=== PATIENT | male | born 1980 | race Caucasian/White ===

== ENCOUNTER 2016-06-03 06:35 | Emergency (ER) | payer SELFPAY ==
[2016-06-03 06:49] VITALS: O2SAT 98
[2016-06-03] MEDS ORDERED: Naproxen 550 mg Tab PO STA (07:34)
[2016-06-03] MEDS ORDERED: Naproxen 550 mg Tab PO ONE (07:45)
--- NOTE | 2016-06-03 08:00 | RAD ---
PROCEDURE: Radiographs of the Right Shoulder HISTORY: RIGHT NONTRAUMATIC SHOULDER PAIN COMPARISON: No prior. FINDINGS: BONES: Normal. No fracture. JOINTS: Normal. Glenohumeral and acromioclavicular joints preserved. No osteoarthritis. SOFT TISSUES: Normal. OTHER FINDINGS: None. IMPRESSION: Normal radiographs of the right shoulder.
--- NOTE | 2016-06-03 08:06 | C.PDOC ---
History Of Present Illness 36 y/o male presents to the ED complaining of right shoulder pain for 20 days, worse today. 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 He denies any trauma/injury, chest pain, shortness of breath, cough, fever, or rash. States he did not take any OTC medication for the pain. Time Seen by Provider: 06/03/16 07:16 Chief Complaint (Nursing): Upper Extremity Problem/Injury History Per: Patient History/Exam Limitations: no limitations Onset/Duration Of Symptoms: Days (20), Gradual, Persistent, Worse Since (today) Current Symptoms Are (Timing): Still Present Quality: Aching, "Pain", Other (throbbing) Exacerbating Factor(s): Movement Recent travel outside of the [place]: No Past Medical History Reviewed: Historical Data, Nursing Documentation, Vital Signs Vital Signs: Last Vital Signs Temp 98.1 F 06/03/16 06:45 Pulse 69 06/03/16 06:45 Resp 14 06/03/16 06:45 BP 107/74 06/03/16 06:45 Pulse Ox 98 06/03/16 08:22 - Medical History PMH: No Chronic Diseases Surgical History: No Surg Hx Family History: States: No Known Family Hx - Social History Hx Tobacco Use: Yes (heavy smoker) Hx Alcohol Use: No Hx Substance Use: No - Immunization History Hx Tetanus Toxoid Vaccination: No Hx Influenza Vaccination: No Hx Pneumococcal Vaccination: No Review Of Systems Except As Marked, All Systems Reviewed And Found Negative. Constitutional: Negative for: Fever Cardiovascular: Negative for: Chest Pain Respiratory: Negative for: Cough, Shortness of Breath Musculoskeletal: Positive for: Shoulder Pain (right) Skin: Negative for: Rash Physical Exam - Physical Exam Appears: Non-toxic, No Acute Distress, Other (comfortable) Skin: Normal Color, Warm, Dry, No Rash Head: Atraumatic, Normacephalic Neck: Normal ROM, Supple, No Other (tenderness) Chest: Symmetrical, No Tenderness Cardiovascular: Rhythm Regular Respiratory: Normal Breath Sounds, No Rales, No Rhonchi, No Wheezing Back: Normal Inspection, No Vertebral Tenderness, No Paraspinal Tenderness Extremity: Normal ROM, Tenderness (along right lower trapezius muscle and to posterior aspect of the right shoulder), No Deformity, No Swelling Pulses: Left Radial: Normal, Right Radial: Normal Neurological/Psych: Oriented x3, Normal Speech, Normal Cognition, Normal Sensation ED Course And Treatment O2 Sat by Pulse Oximetry: 98 (ra) Pulse Ox Interpretation: Normal - Other Rad X-Ray, Right Shoulder X-Ray: Viewed By Me, Read By Radiologist Interpretation: Accession No. : [id number]. Patient Name / ID : MAURICIO CHURCH A / [id number]. Exam Date : 06/03/2016 07:28:22 ( Approved ). Study Comment : Sex / Age : M / [id number]. Creator : Antonietta Sandoval V. Dictator : Antonietta Sandoval V. Grain Buyer : Factorer : Antonietta Sandoval V. Approver2 : Report Date : 2016 07:58:29. My Comment : . PROCEDURE: Radiographs of the Right Shoulder. HISTORY: RIGHT NONTRAUMATIC SHOULDER PAIN. COMPARISON: No prior. FINDINGS: BONES: Normal. No fracture. JOINTS: Normal. Glenohumeral and acromioclavicular joints preserved. No osteoarthritis. SOFT TISSUES: Normal. OTHER FINDINGS: None. IMPRESSION: Normal radiographs of the right shoulder. Progress Note: Right shoulder x-ray was ordered. Patient was treated with Naproxen PO and Flexeril PO. Reassessment Condition: Improved (Patient reports improvement of right shoulder pain. Advised to follow up with orthopedist within one week.) Disposition Counseled Patient/Family Regarding: Studies Performed, Diagnosis, Need For Followup, Rx Given - Disposition Referrals: Jose Armando Bonilla III, MD [Staff Provider] - [employer] [facility] [Outside] Disposition: HOME/ ROUTINE Disposition Time: 08:15 Condition: STABLE Additional Instructions: SEGUIMIENTO CON ORTOPEDIA DENTRO DE 1 SEMANA USE EL MEDICAMENTO DEL DOLOR JAMIL SEA NECESARIO DEVUELVA A LA PARVEZ DE EMERGENCIA SI LOS SNTOMAS EMPEORARAN Prescriptions: Cyclobenzaprine [Cyclobenzaprine HCl] 10 mg PO BID PRN #12 tab PRN Reason: pain/muscle Naproxen [Naprosyn Tab] 375 mg PO BID PRN #20 tab PRN Reason: pain Instructions: Shoulder Pain (ED) Forms: Work Excuse Print Language: TAMAZIGHT - POA Present On Arrival: None - Clinical Impression Clinical Impression: Right shoulder strain - Scribe Statement The provider has reviewed the documentation as recorded by the Scribe (Radha Membreno) Provider Attestation: All medical record entries made by the Scribe were at my direction and personally dictated by me. I have reviewed the chart and agree that the record accurately reflects my personal performance of the history, physical exam, medical decision making, and the department course for this patient. I have also personally directed, reviewed, and agree with the discharge instructions and disposition.
[2016-06-03 08:32] VITALS: BP 123/82; PULSE 65; RESP 18; TEMP 98.3
== END 2016-06-03 08:32 | disposition home or self-care (01) ==
LOC: C.ER 06:35
DX: S46.911A Strain of unspecified muscle, fascia and tendon at shoulder and upper arm level, right arm, initial encounter (principal); X58.XXXA Exposure to other specified factors, initial encounter; Y93.89 Activity, other specified; Y92.9 Unspecified place or not applicable

== ENCOUNTER 2016-09-10 08:00 | Emergency (ER) | payer OTHER ==
[2016-09-10 08:20] VITALS: BP 137/80; PULSE 67; RESP 16; TEMP 97.3; O2SAT 99
[2016-09-10 08:25] VITALS: BMI 26.6
--- NOTE | 2016-09-10 08:28 | C.PDOC ---
History Of Present Illness Patient reports he tripped and fell yesterday at work injuring his left hand and wrist . (+) pain, (+) swelling left thumb, (-) head injury Time Seen by Provider: 09/10/16 08:10 Chief Complaint (Nursing): Finger,Hand,&Wrist History Per: Patient History/Exam Limitations: language barrier Onset/Duration Of Symptoms: Days (1) Quality: Dull Severity: Mild Exacerbating Factor(s): Movement Past Medical History Reviewed: Historical Data, Nursing Documentation, Vital Signs Vital Signs: Last Vital Signs Temp 97.3 F L 09/10/16 08:15 Pulse 67 09/10/16 08:15 Resp 16 09/10/16 08:15 BP 137/80 09/10/16 08:15 Pulse Ox 99 09/10/16 09:04 - Medical History PMH: No Chronic Diseases Surgical History: No Surg Hx Family History: States: No Known Family Hx - Social History Hx Tobacco Use: Yes (heavy smoker) Hx Alcohol Use: Yes Hx Substance Use: No - Immunization History Hx Tetanus Toxoid Vaccination: No Hx Influenza Vaccination: No Hx Pneumococcal Vaccination: No Review Of Systems Musculoskeletal: Positive for: Hand Pain Physical Exam - Physical Exam Appears: Non-toxic Skin: Normal Color Cardiovascular: Rhythm Regular Respiratory: Normal Breath Sounds Extremity: Swelling (tenderness base left thumb, diffuse tenderness left wrist, (+) deformity left thumb base) ED Course And Treatment O2 Sat by Pulse Oximetry: 99 Pulse Ox Interpretation: Normal - Other Rad No standard instances X-Ray: Interpreted by Me Interpretation: X-Ray wrist and hand (-) Fx Progress Note: Treated with tylenol. Treated with thumb splint Reassessment Condition: Improved Disposition Counseled Patient/Family Regarding: Studies Performed, Diagnosis, Need For Followup, Rx Given - Disposition Referrals: [facility] [Outside] [facility] [Outside] [facility] [Outside] Jose Armando Bonilla III, MD [Staff Provider] - Disposition: HOME/ ROUTINE Disposition Time: 08:40 Condition: GOOD Prescriptions: Naproxen [Naprosyn] 1 tab PO BID PRN #25 tab PRN Reason: Pain Instructions: Finger Sprain (ED), Wrist Sprain (ED) Forms: Work Excuse Print Language: SCOTTISH - POA Present On Arrival: None - Clinical Impression Clinical Impression: Hand sprain, Sprain of wrist
--- NOTE | 2016-09-10 10:58 | RAD ---
PROCEDURE: Left Wrist Radiographs. HISTORY: pain COMPARISON: None. FINDINGS: BONES: Normal. No fracture. JOINTS: Normal. No dislocation. SOFT TISSUES: Normal. OTHER FINDINGS: None. IMPRESSION: Normal left wrist radiographs.
--- NOTE | 2016-09-10 11:00 | RAD ---
PROCEDURE: Left Hand Radiographs. HISTORY: pain COMPARISON: None. FINDINGS: BONES: Normal. No fracture. JOINTS: Normal. No osteoarthritic changes. SOFT TISSUES: Normal. OTHER FINDINGS: None. IMPRESSION: Normal left hand radiographs.
== END 2016-09-10 09:19 | disposition home or self-care (01) ==
LOC: C.ER 08:00
DX: S63.92XA Sprain of unspecified part of left wrist and hand, initial encounter (principal); W01.0XXA Fall on same level from slipping, tripping and stumbling without subsequent striking against object, initial encounter; Y93.89 Activity, other specified; Y92.89 Other specified places as the place of occurrence of the external cause; Y99.0 Civilian activity done for income or pay